=== PATIENT | male | born 1965 | race Caucasian/White ===

== ENCOUNTER → 2017-03-07 | Outpatient (CLI) | payer BC, SELFPAY ==
[2017-03-07 09:42] LABS: ALBUMIN 4.2 GM/DL (3.2-5.2); ALBUMIN/GLOBULIN RATIO 1.35 (1.00-1.93); ALKALINE PHOSPHATASE 60 U/L (45-117); ALT/SGPT 44 U/L (12-78); ANION GAP 7 MEQ/L (8-16); AST/SGOT 26 U/L (15-37); BILIRUBIN,TOTAL 0.6 MG/DL (0.2-1.0); BLOOD UREA NITROGEN 21 MG/DL (7-18); CALCIUM LEVEL 9.1 MG/DL (8.5-10.1); CARBON DIOXIDE LEVEL 29 MEQ/L (21-32); CHLORIDE LEVEL 106 MEQ/L (98-107); CHOLESTEROL LEVEL 145 MG/DL (<200); CREATININE FOR GFR 1.13 MG/DL (0.70-1.30); GLOMERULAR FILTRATION RATE > 60.0 (>56); GLUCOSE, FASTING 125 MG/DL (70-105); POTASSIUM SERUM 4.7 MEQ/L (3.5-5.1); SODIUM LEVEL 142 MEQ/L (136-145); TOTAL PROTEIN 7.3 GM/DL (6.4-8.2); TRIGLYCERIDES LEVEL 65 MG/DL (<150)
== END ==
LOC: M WUC 08:21
PROVIDERS: ATTEND Emergency Medicine
DX: E11.9 Type 2 diabetes mellitus without complications (principal); I10 Essential (primary) hypertension; E78.2 Mixed hyperlipidemia

== ENCOUNTER → 2017-06-25 | Outpatient (CLI) | payer BC ==
[2017-06-25 14:54] LABS: BASO % 0.4 % (0.0-1.0); EOS # 0.2 10^3/uL (0.0-0.50); EOS % 2.5 % (0.0-3.0); IMMATURE GRANULOCYTE % 0.4 % (0-0); LYMPH # 2.6 10^3/uL (1.5-4.5); LYMPH % 37.9 % (24.0-44.0); MEAN CORPUSCULAR HEMOGLOBIN 30.5 pg (27.0-33.0); MEAN CORPUSCULAR HGB CONC 34.1 g/dl (32.0-36.5); MEAN CORPUSCULAR VOLUME 89.5 fl (80.0-96.0); MONO # 0.7 10^3/uL (0.0-0.8); MONO % 9.7 % (0.0-5.0); NEUTROPHILS # 3.3 10^3/uL (1.8-7.7); NEUTROPHILS % 49.1 % (36.0-66.0); PLATELET COUNT, AUTOMATED 250 10^3/uL (150-450); RED CELL DISTRIBUTION WIDTH 11.5 % (11.5-14.5); WHITE BLOOD COUNT 6.8 10^3/uL (4.0-10.0)
[2017-06-25 15:15] LABS: ANION GAP 8 MEQ/L (8-16); BLOOD UREA NITROGEN 17 MG/DL (7-18); CALCIUM LEVEL 8.7 MG/DL (8.5-10.1); CARBON DIOXIDE LEVEL 29 MEQ/L (21-32); CHLORIDE LEVEL 105 MEQ/L (98-107); CREATININE FOR GFR 1.03 MG/DL (0.70-1.30); GLOMERULAR FILTRATION RATE > 60.0 (>56); GLUCOSE, FASTING 115 MG/DL (70-105); POTASSIUM SERUM 4.3 MEQ/L (3.5-5.1); SODIUM LEVEL 142 MEQ/L (136-145)
== END ==
LOC: M WUC 13:16
PROVIDERS: ATTEND Family Medicine
DX: I10 Essential (primary) hypertension (principal)

== ENCOUNTER → 2017-11-08 | Outpatient (CLI) | payer BC ==
[2017-11-08 09:34] LABS: ALBUMIN 4.1 GM/DL (3.2-5.2); ALBUMIN/GLOBULIN RATIO 1.37 (1.00-1.93); ALKALINE PHOSPHATASE 62 U/L (45-117); ALT/SGPT 69 U/L (12-78); ANION GAP 8 MEQ/L (8-16); AST/SGOT 37 U/L (7-37); BILIRUBIN,TOTAL 0.8 MG/DL (0.2-1.0); BLOOD UREA NITROGEN 20 MG/DL (7-18); CALCIUM LEVEL 8.9 MG/DL (8.5-10.1); CARBON DIOXIDE LEVEL 28 MEQ/L (21-32); CHLORIDE LEVEL 102 MEQ/L (98-107); CHOLESTEROL LEVEL 119 MG/DL (<200); CHOLESTEROL RISK RATIO 3.051 (<5); CREATININE FOR GFR 1.18 MG/DL (0.70-1.30); GLOMERULAR FILTRATION RATE > 60.0 (>56); GLUCOSE, FASTING 136 MG/DL (70-100); HDL CHOLESTEROL 39 MG/DL (>40); NON-HDL-C 80 MG/DL; POTASSIUM SERUM 4.3 MEQ/L (3.5-5.1); SODIUM LEVEL 138 MEQ/L (136-145); TOTAL PROTEIN 7.1 GM/DL (6.4-8.2); TRIGLYCERIDES LEVEL 75 MG/DL (<150)
[2017-11-08 10:03] LABS: ESTIMATED AVERAGE GLUCOSE 143 MG/DL (60-110); HEMOGLOBIN A1c 6.6 %
== END ==
LOC: M WUC 08:07
DX: E11.9 Type 2 diabetes mellitus without complications (principal); I10 Essential (primary) hypertension; E78.2 Mixed hyperlipidemia
CPT/HCPCS: 80053

== ENCOUNTER → 2018-05-27 | Outpatient (CLI) | payer BC ==
[2018-05-27 09:39] LABS: ALBUMIN 4.1 GM/DL (3.2-5.2); ALBUMIN/GLOBULIN RATIO 1.46 (1.00-1.93); ALKALINE PHOSPHATASE 67 U/L (45-117); ALT/SGPT 57 U/L (12-78); ANION GAP 7 MEQ/L (8-16); AST/SGOT 28 U/L (7-37); BILIRUBIN,TOTAL 0.7 MG/DL (0.2-1.0); BLOOD UREA NITROGEN 20 MG/DL (7-18); CALCIUM LEVEL 9.5 MG/DL (8.5-10.1); CARBON DIOXIDE LEVEL 29 MEQ/L (21-32); CHLORIDE LEVEL 100 MEQ/L (98-107); CHOLESTEROL LEVEL 135 MG/DL (<200); CHOLESTEROL RISK RATIO 3.292 (<5); CREATININE FOR GFR 1.15 MG/DL (0.70-1.30); GLOMERULAR FILTRATION RATE > 60.0 (>56); GLUCOSE, FASTING 133 MG/DL (70-100); HDL CHOLESTEROL 41 MG/DL (>40); LDL CHOLESTEROL 74 MG/DL (<100); NON-HDL-C 94 MG/DL; POTASSIUM SERUM 4.1 MEQ/L (3.5-5.1); SODIUM LEVEL 136 MEQ/L (136-145); TOTAL PROTEIN 6.9 GM/DL (6.4-8.2); TRIGLYCERIDES LEVEL 98 MG/DL (<150)
[2018-05-27 10:12] LABS: MALB URINE SIEMENS 12.2 MG/L; MAU/CREAT RATIO 5.7 MCG/MG (0.0-30.0)
[2018-05-27 12:18] LABS: ESTIMATED AVERAGE GLUCOSE 154 MG/DL (60-110)
== END ==
LOC: M WUC 08:17
DX: E11.9 Type 2 diabetes mellitus without complications (principal); I10 Essential (primary) hypertension; E78.2 Mixed hyperlipidemia
CPT/HCPCS: 80053

== ENCOUNTER → 2018-11-20 | Outpatient (CLI) | payer BC ==
[2018-11-20 13:03] LABS: BLOOD UREA NITROGEN 22 MG/DL (7-18); CALCIUM LEVEL 9.4 MG/DL (8.5-10.1); CARBON DIOXIDE LEVEL 25 MEQ/L (21-32); CHLORIDE LEVEL 103 MEQ/L (98-107); CREATININE FOR GFR 1.13 MG/DL (0.70-1.30); GLOMERULAR FILTRATION RATE > 60.0 (>56); GLUCOSE, FASTING 148 MG/DL (70-100); POTASSIUM SERUM 4.6 MEQ/L (3.5-5.1); SODIUM LEVEL 139 MEQ/L (136-145)
== END ==
LOC: M WUC 08:29
PROVIDERS: ATTEND Physician Assistant
DX: E11.9 Type 2 diabetes mellitus without complications (principal)

== ENCOUNTER → 2019-05-26 | Outpatient (CLI) | payer BC ==
[2019-05-26 10:49] LABS: HEMOGLOBIN A1c 7.1 %
[2019-05-26 11:03] LABS: ALT/SGPT 71 U/L (12-78); BILIRUBIN,TOTAL 0.9 MG/DL (0.2-1.0); BLOOD UREA NITROGEN 17 MG/DL (7-18); CALCIUM LEVEL 9.6 MG/DL (8.5-10.1); CARBON DIOXIDE LEVEL 31 MEQ/L (21-32); CHLORIDE LEVEL 105 MEQ/L (98-107); CHOLESTEROL LEVEL 141 MG/DL (<200); CREATININE FOR GFR 1.09 MG/DL (0.70-1.30); GLOMERULAR FILTRATION RATE > 60.0 (>56); GLUCOSE, FASTING 141 MG/DL (70-100); HDL CHOLESTEROL 50 MG/DL (>40); LDL CHOLESTEROL 75 MG/DL (<100); NON-HDL-C 91 MG/DL; POTASSIUM SERUM 4.4 MEQ/L (3.5-5.1); SODIUM LEVEL 139 MEQ/L (136-145); TRIGLYCERIDES LEVEL 80 MG/DL (<150)
[2019-05-26 11:21] LABS: MAU/CREAT RATIO 7.6 MCG/MG (0.0-30.0)
== END ==
LOC: M WUC 08:16
PROVIDERS: ATTEND Physician Assistant
DX: E11.9 Type 2 diabetes mellitus without complications (principal); I10 Essential (primary) hypertension; E78.2 Mixed hyperlipidemia

== ENCOUNTER → 2019-11-24 | Outpatient (CLI) | payer BC ==
[2019-11-24 10:47] LABS: HEMOGLOBIN A1c 6.7 %
[2019-11-24 10:48] LABS: ALBUMIN 3.8 GM/DL (3.2-5.2); ALT/SGPT 53 U/L (12-78); BILIRUBIN,TOTAL 0.8 MG/DL (0.2-1.0); BLOOD UREA NITROGEN 21 MG/DL (7-18); CARBON DIOXIDE LEVEL 31 MEQ/L (21-32); CHLORIDE LEVEL 104 MEQ/L (98-107); CHOLESTEROL LEVEL 125 MG/DL (<200); CHOLESTEROL RISK RATIO 2.906 (<5); CREATININE FOR GFR 0.98 MG/DL (0.70-1.30); GLOMERULAR FILTRATION RATE > 60.0 (>56); GLUCOSE, FASTING 123 MG/DL (70-100); HDL CHOLESTEROL 43 MG/DL (>40); LDL CHOLESTEROL 69 MG/DL (<100); NON-HDL-C 82 MG/DL; POTASSIUM SERUM 4.5 MEQ/L (3.5-5.1); SODIUM LEVEL 139 MEQ/L (136-145); TOTAL PROTEIN 6.8 GM/DL (6.4-8.2); TRIGLYCERIDES LEVEL 67 MG/DL (<150)
== END ==
LOC: M WUC 08:12
PROVIDERS: ATTEND Physician Assistant
DX: E11.9 Type 2 diabetes mellitus without complications (principal); E78.2 Mixed hyperlipidemia

== ENCOUNTER → 2020-06-04 | Outpatient (CLI) | payer BC ==
[2020-06-04 15:49] LABS: BASO % 0.5 % (0.0-1.0); EOS # 0.1 10^3/uL (0.0-0.5); EOS % 0.9 % (0.0-3.0); HEMATOCRIT 48.1 % (42.0-52.0); HEMOGLOBIN 15.8 g/dl (13.5-17.5); LYMPH # 2.3 10^3/uL (1.5-5.0); LYMPH % 27.2 % (24.0-44.0); MEAN CORPUSCULAR HEMOGLOBIN 30.2 pg (27.0-33.0); MEAN CORPUSCULAR HGB CONC 32.8 g/dl (32.0-36.5); MEAN CORPUSCULAR VOLUME 91.8 fl (80.0-96.0); MONO % 11.7 % (0.0-5.0); NEUTROPHILS % 59.3 % (36.0-66.0); PLATELET COUNT, AUTOMATED 193 10^3/uL (150-450); RED BLOOD COUNT 5.24 10^6/uL (4.30-6.10); WHITE BLOOD COUNT 8.5 10^3/uL (4.0-10.0)
[2020-06-04 16:10] LABS: HEMOGLOBIN A1c 7.1 %
[2020-06-04 16:50] LABS: ALBUMIN 3.4 GM/DL (3.2-5.2); ALT/SGPT 53 U/L (12-78); BILIRUBIN,TOTAL 0.8 MG/DL (0.2-1.0); BLOOD UREA NITROGEN 16 MG/DL (7-18); CALCIUM LEVEL 9.3 MG/DL (8.5-10.1); CARBON DIOXIDE LEVEL 27 MEQ/L (21-32); CHLORIDE LEVEL 103 MEQ/L (98-107); CHOLESTEROL LEVEL 135 MG/DL (<200); CHOLESTEROL RISK RATIO 2.934 (<5); CREATININE FOR GFR 1.16 MG/DL (0.70-1.30); GLOMERULAR FILTRATION RATE > 60.0 (>56); GLUCOSE, FASTING 142 MG/DL (70-100); HDL CHOLESTEROL 46 MG/DL (>40); LDL CHOLESTEROL 71 MG/DL (<100); NON-HDL-C 89 MG/DL; POTASSIUM SERUM 4.6 MEQ/L (3.5-5.1); SODIUM LEVEL 135 MEQ/L (136-145); TRIGLYCERIDES LEVEL 90 MG/DL (<150)
[2020-06-04 17:15] LABS: MALB URINE SIEMENS 14.2 MG/L; MAU/CREAT RATIO 6.6 MCG/MG (0.0-30.0)
== END ==
LOC: M WUC 11:17
PROVIDERS: ATTEND Family Medicine
DX: E11.9 Type 2 diabetes mellitus without complications (principal)

== ENCOUNTER → 2020-12-08 | Outpatient (CLI) | payer OTHER ==
[2020-12-08 11:13] LABS: HEMOGLOBIN A1c 9.4 %
== END ==
LOC: M WUC 08:14
PROVIDERS: ATTEND Nurse Practitioner Family
DX: E11.9 Type 2 diabetes mellitus without complications (principal)

== ENCOUNTER → 2021-03-31 | Outpatient (REF) | payer OTHER ==
[2021-03-31 17:07] LABS: HEMOGLOBIN A1c 8.1 %
== END ==
LOC: M WUC 16:16
PROVIDERS: ATTEND Nurse Practitioner Family
DX: E11.9 Type 2 diabetes mellitus without complications (principal)

== ENCOUNTER 2021-04-12 07:35 | Observation (INO) | payer OTHER ==
[~2021-04-12] VITALS: Ht 185.4 cm; Wt 115.0 kg
[2021-04-12] VITALS (7 sets, daily range): BP systolic 114–143; BP diastolic 73–94
[2021-04-12] MEDS ORDERED: METF10004 PO (08:00)
[2021-04-12] MEDS ORDERED: ATOR1TAB21 PO (08:00)
[2021-04-12] MEDS ORDERED: TAMS1CAP17 PO (08:00)
[2021-04-12] MEDS ORDERED: LISI20TA35 PO (08:00)
[2021-04-12] MEDS ORDERED: ONDA-83 PO (08:00)
[2021-04-12] MEDS ORDERED: OXYC1TAB23 PO (08:00)
[2021-04-12] MEDS ORDERED: JARD1TAB PO (08:00)
[2021-04-12 08:41] LABS: HEMATOCRIT 44.1 % (42.0-52.0); HEMOGLOBIN 15.3 g/dl (13.5-17.5); MEAN CORPUSCULAR HGB CONC 34.7 g/dl (32.0-36.5); MEAN CORPUSCULAR VOLUME 89.5 fl (80.0-96.0); PLATELET COUNT, AUTOMATED 178 10^3/uL (150-450); RED BLOOD COUNT 4.93 10^6/uL (4.30-6.10); WHITE BLOOD COUNT 9.8 10^3/uL (4.0-10.0)
[2021-04-12] MEDS ORDERED: ONDANSETRON 4MG/2ML VIAL IV ONE (08:45)
[2021-04-12] MEDS ORDERED: MORPHINE 4 MG/ML 1ML VIAL/SYRINGE (J2270) IV ONE (08:45)
[2021-04-12] MEDS ORDERED: NS 1,000 ML IV ONE (08:55)
[2021-04-12 09:03] LABS: CALCIUM LEVEL 8.5 MG/DL (8.5-10.1); CREATININE FOR GFR 1.79 MG/DL (0.70-1.30); GLOMERULAR FILTRATION RATE 41.9 (>56); POTASSIUM SERUM 3.6 MEQ/L (3.5-5.1)
[2021-04-12 09:17] LABS: ALBUMIN 3.5 GM/DL (3.2-5.2); BILIRUBIN,DIRECT 0.5 MG/DL (0.0-0.2); BILIRUBIN,TOTAL 1.3 MG/DL (0.2-1.0); TOTAL PROTEIN 6.6 GM/DL (6.4-8.2)
[2021-04-12] MEDS ORDERED: HOME MED LIST COMPLETE! XX SCH (09:45)
[2021-04-12] MEDS ORDERED: MORPHINE 2 MG/ML 1ML VIAL (J2270) IV PRN (09:50)
[2021-04-12] MEDS: NS 1,000 ML IV SCH ×2 (09:50→11:55)
[2021-04-12] MEDS ORDERED: LIDOCAINE 2% 100MG/5ML SDV (FOR ANES.) As Ordered ONE (15:18)
[2021-04-12] MEDS ORDERED: fentaNYL 100 MCG/2 ML INJECTION (J3010) As Ordered ONE ×2 (15:18→17:24)
[2021-04-12] MEDS ORDERED: propofoL 200 MG/20 ML VIAL As Ordered ONE ×3 (15:18→17:30)
[2021-04-12] MEDS ORDERED: MIDAZOLAM INJ 2MG/2ML VIAL (J2250 PER 1MG) As Ordered ONE (15:18)
[2021-04-12] MEDS ORDERED: CONRAY-60 60% 50ML VIAL (Q9961) As Ordered ONE (15:48)
[2021-04-12] MEDS ORDERED: ceFAZolin 2 GM/D5W 50 ML IV BAG (J0690 PER 500MG) As Ordered ONE (16:35)
[2021-04-12] MEDS ORDERED: ceFAZolin SOD 1 GM in D5W MINI-BAG PLUS 50 ML IV ONE (16:35)
--- NOTE | 2021-04-12 16:37 | SMCUROLCON ---
Urology Consultation General Date of Consultation 04/12/21 Reason For Consultation This patient is seen for Acute Kidney Failure,Kidney Stone. History of Present Illness This is a 56 y/o M w/ a PMH significant for DM2, HL, and kidney stones (passed a stone several years ago), admitted for intractable pain 2/2 an obstructing 5-6mm L UVJ stone. The patient first developed severe L flank pain on Sunday. He went to [facility] and was found to have an the L UVJ stone as well as a 6mm stone in his L kidney. He was sent home w/ pain medication and flomax. He went back to [facility] last night for worsening symptoms. He was sent home after his pain improved w/ the plan for surgery today. He came to [facility] this morning as his pain worsened again. He was admitted at that time for pain control. He still notes moderate L flank pain. He has had n/v, but none at this time. He denies dysuria. Of note, his PCP ordered a scrotal US for him which was supposed to be done today as he noticed an abnormality in his L hemiscrotum a few months ago. He notes that it feels like a bag of worms. He denies any pain. Past Medical History Medical History see HPI Surgical Hstory umbilical hernia repair Medications Current Medications Current Medications Medications (Trade) Dose Ordered Sig/Binu Route PRN Reason Start Time Stop Time Status Last Admin Dose Admin Home Med (Home Med List Complete!) ASDIRECTED XX 04/12/21 09:45 04/12/21 09:43 DC Morphine Sulfate (Morphine Sulfate Inj) 2 mg Q6HP PRN IV MODERATE PAIN (PS 5-7) 04/12/21 09:50 04/12/21 12:30 Sodium Chloride 1,000 ml @ 125 mls/hr Q8H IV 04/12/21 09:50 04/12/21 09:50 Allergies Allergies: Coded Allergies: No Known Allergies (Unverified , 04/12/21) Review of Systems Constitutional: Denies: Fever, Chills, Sweats, Weakness, Malaise ENT: Denies: Head Aches, Sore Throat, Epistaxis Skin: Denies: Rash, Lesions, Breakdown, Nail Changes Pulmonary: Denies: Dyspnea, Cough Cardiovascular: Denies Chest Pain, Denies Palpitations Gastrointestinal: Reports: Nausea, Vomiting, Abdominal Pain Genitourinary: Denies: Dysuria, Frequency, Incontinence, Hematuria Musculoskeletal: Reports: Back Pain (L flank) Psych: Reports: Mood Normal Physical Examination General Exam: Alert, Cooperative, No Acute Distress Chest Exam: Normal air movement Heart Exam: Rate Normal Abdomen Exam: Soft, Mass; No: Tenderness Male Exam catheter in place draining yellow urine; circumcised phallus w/o lesions; b/l descended testicles, both normal in size and negative for masses - nontender; Grade 2 L varicocele Skin Exam: Nl turgor and temperature Neuro Exam: Normal Speech Psych Exam: Mental status NL, Mood NL Vital Signs/I&O Vital Signs Date Time Temp Pulse Resp B/P (MAP) Pulse Ox O2 Delivery O2 Flow Rate FiO2 04/12/21 14:00 99.1 80 16 114/75 (88) 92 Room Air Laboratory Data 24H Labs Laboratory Tests 2 04/12/21 08:31: Nucleated Red Blood Cells % (auto) 0.0, Anion Gap 9, Glomerular Filtration Rate 41.9L, Calcium Level 8.5, Total Bilirubin 1.3H, Direct Bilirubin 0.5H, Aspartate Amino Transf (AST/SGOT) 24, Alanine Aminotransferase (ALT/SGPT) 48, Alkaline Phosphatase 52, Total Protein 6.6, Albumin 3.5, Albumin/Globulin Ratio 1.1, Lipase 78 04/12/21 08:42: Urine Color YELLOW, Urine Appearance CLEAR, Urine pH 5.0, Urine Specific [place] 1.026, Urine Protein NEGATIVE, Urine Glucose (UA) 3+H, Urine Ketones 1+H, Urine Blood 2+H, Urine Nitrite NEGATIVE, Urine Bilirubin NEGATIVE, Urine Urobilinogen 0.2, Urine Leukocyte Esterase NEGATIVE, Urine WBC (Auto) 2, Urine RBC (Auto) 2, Urine Hyaline Casts (Auto) 0, Urine Bacteria (Auto) NEGATIVE, Urine Squamous Epithelial Cells 0, Urine Sperm (Auto) CBC/BMP Laboratory Tests 04/12/21 08:31 Assessment This is a 56 y/o M admitted for intractable pain 2/2 an obstructing 5-6mm L UVJ stone. I recommended that we take him to the OR for cystoscopy, L ureteroscopy w/ laser lithotripsy, and L ureteral stent placement. After a discussion of the risks and benefits of the procedure, informed consent was signed. Regarding the L scrotal abnormality, this feels like a varicocele and no treatment will likely be needed as he is asymptomatic from this. I explained that he should still have the scrotal US done to confirm this finding. Plan - informed consent signed - 2g ancef IV OCOR - NPO - may have regular diet postop - if pain is controlled postop, ok for discharge home - my patient will schedule follow up in a few wks for stent removal JOSE BOGGS MD Apr 12, 2021 16:37
[2021-04-12] MEDS ORDERED: ceFAZolin SOD 2 GM in IV 1 EA IV ONE (16:40)
--- NOTE | 2021-04-12 16:41 | HPEPDOC ---
[facility] Medical History & Physical Date of Admission Apr 12, 2021 Date of Service: Apr 12, 2021 Attending Physician: Lakeisha Hale MD History and Physical CHIEF COMPLAINT: Left flank pain HISTORY OF PRESENT ILLNESS: Patient is a 56-year-old male with past medical history of kidney stones, diabetes mellitus, hyperlipidemia, diverticulitis, hypertension who presented to [facility] emergency room with the chief complaint of increasing left flank pain. This pain was described as severe, 04/17, constant, present since 04/09/2021. He initially presented to [facility] over this past weekend and was diagnosed with kidney stones. It was noted that he had several kidneys, one in the left UVJ. He was discharged home after that initial visit and then later came back to . He was offered to be transferred to [facility] at that time but opted to go home and told to follow-up with Dr. Arreola, urology today. Today at home the pain was so severe he came to the emergency room before his scheduled OR time. On examination the patient had severe left flank pain and tenderness over the left lower back. He denied any urinary symptoms, nausea, vomiting, diarrhea, chills, sweating. Creatinine was noted to have increased to 1.79 from 1.75 on his last set of labs from [facility]. He was given morphine and Zofran in the emergency room with little improvement. Dr. Arreola was contacted and the p atient was admitted under observation status for left kidney stone requiring cystoscopy, ureteroscopy, laser lithotripsy with left stent a possibility. REVIEW OF SYSTEMS: CONSTITUTIONAL: Denies lack of energy, unexplained weight gain or weight loss, loss of appetite, fever EYES: Denies eye drainage, eye pain, visual changes, dry/irritated eye EARS, NOSE, MOUTH, THROAT: Denies difficulty hearing, ringing in ears, mouth sores, loose teeth, sore throat, facial numbness or pain NECK: Denies swollen glands CARDIOVASCULAR: Denies irregular heartbeat, racing heart, chest pains, swelling of feet or legs, pain in legs with walking RESPIRATORY: Denies shortness of breath, night sweats, wheezing, sputum production, oxygen at home, coughing up blood, cough lasting > 1 month GASTROINTESTINAL: Denies abdominal pain, constipation, bloody stool, diarrhea, heartburn, nausea, vomiting GENITOURINARY: Denies painful urination, bloody urine, frequent urination, urgency, leaking urine, impotence MUSCULOSKELETAL: Denies joint pain, leg swelling INTEGUMENTARY: Denies rash, itching, new skin lesion, change in existing skin lesion, hair loss or increase, breast changes. NEUROLOGICAL: Denies headaches, dizziness, difficulty walking, numbness or tingling PSYCHIATRIC: Denies depression, anxiety, recurrent bad thoughts, mood swings, hallucinations PAST MEDICAL HISTORY: Diabetes mellitus History of kidney stones Hyperlipidemia Diverticulitis Hypertension testicular mass? PAST SURGICAL HISTORY: Umbilical hernia repair FAMILY HISTORY: FatherCAD, DM, hypertension, testicular cancer SOCIAL HISTORY: Denies smoking alcohol or illicit drug use. Lives with his significant other. No handicaps. Follows with primary care regularly. ALLERGIES: Please see below. HOME MEDICATIONS: Please see below. PHYSICAL EXAMINATION: VS: see below CONSTITUTIONAL: No acute distress, resting comfortably, AAO x 3 EYES: PERRLA, EOM intact HENT, MOUTH: Normocephalic, atraumatic, moist mucous membranes, NECK: SUPPLE, no JVD, no lymphadenopathy, no carotid bruit CV: Regular rate and rhythm, S1S2 normal, no murmurs/rubs/gallops BACK: Left lower back tenderness on palpation/tapping with radiationto left groin, left groin tenderness on palpation RESPIRATORY: Clear to auscultation bilaterally, no rales/rhonchi/wheezes GI: BS positive in 4 quadrants, soft, nontender, nondistended, no rebound or guarding, no organomegaly : morejon catheter MUSCULOSKELETAL: Normal ROM. No cyanosis, clubbing, swelling, joint deformity, extremity edema INTEGUMENTARY: Intact, no rashes, no lesions, no erythema NEUROLOGIC: Cranial Nerves II-XII are intact, no focal deficits PSYCHIATRIC: Mood and affect are normal LABORATORY DATA: Please see below IMAGING: Imaging in chart ASSESSMENT: 56-year-old male admitted for left ureterolithiasis requiring cystoscopy, ureteroscopy, laser lithotripsy with left stent placement. PLAN: 1. Ureterolithiasis, left -Hx of kidney stones -Imaging from [facility], in chart, reviewed upon admission -Morejon catheter, pain control -Dr. Arreola (urology) consulted and plans cystoscopy, ureteroscopy, laser lithotripsy with left stent placement 2. IMER likely 2/2 to left ureterolithiasis and home medications -Cr 1.7, baseline wnl per patient -Hold all antihypertensives -IVFs, repeat labs in AM, avoid nephrotoxic meds 3. DM -BS 160 -[id number], change to AC/HS and diabetic diet after surgery -Hold home PO meds for now, restart on discharge 4. HLD -Resume statin after surgery 5. HTN -Stable -May incr BP with fluids -Hold home meds for now and monitor 6. DVT px -Due for surgery, holding heparin. Start when ok by urology DISPOSITION: OR today, observation status. Urology consulted and following. Plan is home at discharge Vital Signs Vital Signs Date Time Temp Pulse Resp B/P (MAP) Pulse Ox O2 Delivery O2 Flow Rate FiO2 04/12/21 14:00 99.1 80 16 114/75 (88) 92 Room Air Laboratory Data Labs 24H Laboratory Tests 2 04/12/21 08:31: Nucleated Red Blood Cells % (auto) 0.0, Anion Gap 9, Glomerular Filtration Rate 41.9L, Calcium Level 8.5, Total Bilirubin 1.3H, Direct Bilirubin 0.5H, Aspartate Amino Transf (AST/SGOT) 24, Alanine Aminotransferase (ALT/SGPT) 48, Alkaline Phosphatase 52, Total Protein 6.6, Albumin 3.5, Albumin/Globulin Ratio 1.1, Lipase 78 04/12/21 08:42: Urine Color YELLOW, Urine Appearance CLEAR, Urine pH 5.0, Urine Specific [place] 1.026, Urine Protein NEGATIVE, Urine Glucose (UA) 3+H, Urine Ketones 1+H, Urine Blood 2+H, Urine Nitrite NEGATIVE, Urine Bilirubin NEGATIVE, Urine Urobilinogen 0.2, Urine Leukocyte Esterase NEGATIVE, Urine WBC (Auto) 2, Urine RBC (Auto) 2, Urine Hyaline Casts (Auto) 0, Urine Bacteria (Auto) NEGATIVE, Urine Squamous Epithelial Cells 0, Urine Sperm (Auto) CBC/BMP Laboratory Tests 04/12/21 08:31 Home Medications Scheduled Atorvastatin Calcium (Atorvastatin Calcium) 20 Mg Tablet, 20 MG PO DAILY Empagliflozin (Jardiance) 10 Mg Tablet, 10 MG PO DAILY Lisinopril/Hydrochlorothiazide (Lisinopril-Hctz 20-12.5 mg Tab) 1 Each Tablet, 1 TAB PO DAILY Metformin HCl (Metformin HCl) 1,000 Mg Tablet, 1,000 MG PO DAILY Tamsulosin Hcl (Tamsulosin HCl) 0.4 Mg Capsule, 0.4 MG PO DAILY Scheduled PRN Ondansetron HCl (Ondansetron HCl) 4 Mg Tablet, 8 MG PO TID PRN for NAUSEA Oxycodone HCl/Acetaminophen (Oxycodone-Acetaminophen 5-325) 1 Each Tablet, 1 TAB PO Q6H PRN for PAIN LEVEL 5-10 Allergies Coded Allergies: No Known Allergies (Unverified , 04/12/21) A-FIB/CHADSVASC A-FIB History Current/History of A-Fib/PAF?: No Current PO Anticoag Therapy: No Age/Risk Factor Scoring CHADSVASC: CHADSVASC Response (Comments) Value Age Risk Factor Age < 65 years old 0 Gender Risk Factor Male 0 Hx of CHF No 0 Hx of HTN Yes 1 Hx of Stroke/TIA/or VTE No 0 Hx of Diabetes Yes 1 Hx of Vascular Disease No 0 Total 2 Treatment Treatment ordered: NONE Other anticoagulant ordered: surgery Lakeisha Hale MD Apr 12, 2021 16:41
[2021-04-12] MEDS ORDERED: dexameTHASONE 4 MG/ML 1ML VIAL (J1100 PER 1MG) As Ordered ONE (16:54)
[2021-04-12] MEDS ORDERED: METOCLOPRAMIDE INJ 10MG/2ML VIAL (J2765 PER 1) As Ordered ONE (16:55)
[2021-04-12] MEDS ORDERED: PHENYLephrine 500MCG 5ML (100MCG/ML) SYRINGE As Ordered ONE (17:23)
[2021-04-12] MEDS ORDERED: ePHEDrine SULFATE 25 MG/5 ML(5MG/ML) SYRINGE As Ordered ONE (17:23)
[2021-04-12] MEDS ORDERED: ONDANSETRON 4MG/2ML VIAL As Ordered ONE (17:30)
--- NOTE | 2021-04-12 17:43 | REP ---
INDICATION: LEFT STENT PLACEMENT. COMPARISON: None. TECHNIQUE: Two supine radiographs of the abdomen and pelvis FINDINGS: Findings demonstrate satisfactory left ureteral stent placement. Total fluoroscopic time 13 seconds. IMPRESSION: Left ureteral stent placement. <Electronically signed by Matt Pacheco > 04/12/21 1009
[2021-04-12] MEDS ORDERED: ONDANSETRON 4MG/2ML VIAL IV PRN (17:55)
[2021-04-12] MEDS ORDERED: METOCLOPRAMIDE INJ 10MG/2ML VIAL (J2765 PER 1) IV PRN (17:55)
[2021-04-12] MEDS ORDERED: fentaNYL 100 MCG/2 ML INJECTION (J3010) IV PRN (17:55)
[2021-04-12] MEDS ORDERED: LR 1,000 ML IV SCH (17:55)
[2021-04-12] MEDS ORDERED: oxyCODONE 5MG TAB PO PRN (17:55)
[2021-04-12] MEDS ORDERED: OXYCODONE/APAP 5MG/325MG(BULK FOR ED) 1 TABLET PO PRN (18:50)
[2021-04-12] MEDS ORDERED: NS 1,000 ML IV SCH (18:50)
[2021-04-12] MEDS ORDERED: ACETAMINOPHEN TAB 650MG DOSE (2X325MG) PO PRN (18:55)
[2021-04-13 00:11] VITALS: BP 127/80
[2021-04-13 04:00] VITALS: BP 127/79
--- NOTE | 2021-04-13 07:42 | RO ---
OPERATIVE NOTE DATE OF OPERATION: 04/12/2021 PREOPERATIVE DIAGNOSIS: Left kidney and ureteral stones. POSTOPERATIVE DIAGNOSIS: Left kidney and ureteral stones. PROCEDURE: Cystoscopy, left ureteroscopy with laser lithotripsy and basket extraction of stones, left retrograde pyelogram with intraop interpretation of images, left ureteral stent placement. SURGEON: Jone Arreola MD FIRE PREVENTION OFFICER: None ANESTHESIA: General. OPERATIVE INDICATIONS: This is a 56-year-old male who had intractable pain from a 5 mm left ureterovesical junction stone. He also had 5-6 mm stone inside his left kidney. He was brought to the operating room today for treatment. DESCRIPTION OF PROCEDURE: The patient was brought to the operating room and general anesthesia was induced. Prophylactic antibiotics were infused. He was placed in the dorsal lithotomy position and prepped and draped in usual sterile fashion. A rigid cystoscope was inserted in the urethral meatus and advanced into the bladder. A guidewire was advanced into the left collecting system. I then went up the left collecting system with a short semi-rigid ureteroscope and within the distal ureter the 5 mm stone was seen. The stone was removed using a basket. I then advanced the ureteral access sheath up the left collecting system. I went up the access sheath with a flexible ureteroscope and examined the left kidney thoroughly. Within an upper pole calyx approximately 5-6 mm stone was seen. The stone was fragmented into smaller pieces using 272 micron laser fiber. All the fragments were removed using a basket. I then examined the rest of the kidney and no additional stones were seen. I then shot a retrograde pyelogram and it was notable for mild left hydronephrosis with no extravasation. I then withdrew the ureteroscope along with access sheath and no additional stones were seen inside the ureter. I then utilized the guidewire to advance 6-Dutch x 22-32 cm JJ ureteral stent up the left collecting system. The wire was removed and there were adequate curls of the stent in left renal pelvis and the bladder. The bladder was emptied of all fluids and this marked the conclusion of the procedure. The patient was taken out of the dorsal lithotomy position, awakened from anesthesia and transported to the recovery room in stable condition. ESTIMATED BLOOD LOSS: 5 mL. COMPLICATIONS: None. SPECIMENS: Kidney stone fragments. PLAN: The patient will go back to regular nursing floor and if his pain is controlled he can be discharged home. He will follow up in urology clinic in a few weeks for stent removal. JAY
[2021-04-13 08:14] LABS: HEMOGLOBIN 14.6 g/dl (13.5-17.5); MEAN CORPUSCULAR HEMOGLOBIN 31.3 pg (27.0-33.0); MEAN CORPUSCULAR HGB CONC 34.8 g/dl (32.0-36.5); MEAN CORPUSCULAR VOLUME 89.9 fl (80.0-96.0); PLATELET COUNT, AUTOMATED 215 10^3/uL (150-450); RED BLOOD COUNT 4.67 10^6/uL (4.30-6.10); WHITE BLOOD COUNT 10.6 10^3/uL (4.0-10.0)
[2021-04-13 08:41] LABS: ALBUMIN 3.2 GM/DL (3.2-5.2); ALT/SGPT 45 U/L (12-78); BILIRUBIN,TOTAL 0.9 MG/DL (0.2-1.0); BLOOD UREA NITROGEN 25 MG/DL (7-18); CARBON DIOXIDE LEVEL 26 MEQ/L (21-32); CHLORIDE LEVEL 104 MEQ/L (98-107); CREATININE FOR GFR 1.14 MG/DL (0.70-1.30); GLOMERULAR FILTRATION RATE > 60.0 (>56); GLUCOSE, FASTING 133 MG/DL (70-100); POTASSIUM SERUM 4.2 MEQ/L (3.5-5.1); SODIUM LEVEL 137 MEQ/L (136-145); TOTAL PROTEIN 6.5 GM/DL (6.4-8.2)
--- NOTE | 2021-04-13 20:47 | DS.PDOC ---
Discharge Summary General Date of Admission Apr 12, 2021 at 07:36 Date of Discharge 04/13/21 Attending Physician: Lakeisha Hale MD Discharge Summary HISTORY OF PRESENT ILLNESS: Patient is a 56-year-old male with past medical history of kidney stones, diabetes mellitus, hyperlipidemia, diverticulitis, hypertension who presented to [facility] emergency room with the chief complaint of increasing left flank pain. This pain was described as severe, 04/17, constant, present since 04/09/2021. He initially presented to [facility] over this past weekend and was diagnosed with kidney stones. It was noted that he had several kidneys, one in the left UVJ. He was discharged home after that initial visit and then later came back to . He was offered to be transferred to [facility] at that time but opted to go home and told to follow-up with Dr. Arreola, urology today. Today at home the pain was so severe he came to the emergency room before his scheduled OR time. On examination the patient had severe left flank pain and tenderness over the left lower back. He denied any urinary symptoms, nausea, vomiting, diarrhea, chills, sweating. Creatinine was noted to have increased to 1.79 from 1.75 on his last set of labs from [facility]. He was given morphine and Zofran in the emergency room with little improvement. Dr. Arreola was contacted and the patient was admitted under observation status for left kidney stone requiring removal. HOSPITAL COURSE: On 04/12/2021 the patient underwent cystoscopy, left ureteroscopy, laser lithotripsy and basket extraction of stones, left retrograde pyelogram with intraop interpretation of images, left ureteral stent placement. He tolerated the procedure well. The next morning on 04/13/2021 his labs revealed resolution of his acute kidney injury and the patient's pain had significantly improved. He had hematuria which can be expected after his procedures. H&H was stable. The patient was discharged home with instructions to follow-up with Dr. Arreola as scheduled. If hematuria should worsen he should report this to either his primary care or Dr. Arreola. He denied abdominal pain, groin pain, fevers, chills, nausea, vomiting at discharge. PAST MEDICAL HISTORY: Diabetes mellitus History of kidney stones Hyperlipidemia Diverticulitis Hypertension testicular mass? PAST SURGICAL HISTORY: Umbilical hernia repair FAMILY HISTORY: FatherCAD, DM, hypertension, testicular cancer SOCIAL HISTORY: Denies smoking alcohol or illicit drug use. Lives with his significant other. No handicaps. Follows with primary care regularly. ALLERGIES: Please see below. HOME MEDICATIONS: Please see below. PHYSICAL EXAMINATION: VS: see below CONSTITUTIONAL: No acute distress, resting comfortably, AAO x 3 EYES: PERRLA, EOM intact HENT, MOUTH: Normocephalic, atraumatic, moist mucous membranes, NECK: SUPPLE, no JVD, no lymphadenopathy, no carotid bruit CV: Regular rate and rhythm, S1S2 normal, no murmurs/rubs/gallops RESPIRATORY: Clear to auscultation bilaterally, no rales/rhonchi/wheezes GI: BS positive in 4 quadrants, soft, nontender, nondistended, no rebound or guarding, no organomegaly : deferred MUSCULOSKELETAL: Normal ROM. No cyanosis, clubbing, swelling, joint deformity, extremity edema INTEGUMENTARY: Intact, no rashes, no lesions, no erythema NEUROLOGIC: Cranial Nerves II-XII are intact, no focal deficits PSYCHIATRIC: Mood and affect are normal LABORATORY DATA: Please see below IMAGING: Imaging in chart ASSESSMENT: 56-year-old male admitted for left ureterolithiasis being discharged home today PLAN: 1. Left kidney stone s/p cystoscopy, left ureteroscopy, laser lithotripsy and basket extraction of stones, left retrograde pyelogram with intraop interpretation of images, left ureteral stent placement. -resolved pain, + hematuria -voiding well on his own -Dr. Arreola (urology) to f.u as o/p 2. IMER likely 2/2 to left ureterolithiasis and home medications- resolved -Cr wnl. -resume home meds but encouraged to update PCP to repeat labs in one week 3. DM -stable -C/w home meds 4. HLD -Resume statin 5. HTN -C/w home meds DISPOSITION: D/c home today with fu with Dr. Arreola's office. TIME SPENT ON DISCHARGE: 35 minutes. Vital Signs/I&Os Vital Signs Date Time Temp Pulse Resp B/P (MAP) Pulse Ox O2 Delivery O2 Flow Rate FiO2 04/13/21 04:00 98.5 73 16 127/79 (95) 94 Room Air 04/12/21 19:15 2.0 I&O- Last 24 Hours up to 6 AM 04/13/21 06:00 Intake Total 3980 ml Output Total 3100 ml Balance 880 ml Laboratory Data Labs 24H Laboratory Tests 2 04/13/21 04:28: Bedside Glucose (Misc Panel) 139H 04/13/21 07:55: Nucleated Red Blood Cells % (auto) 0.0, Anion Gap 7L, Glomerular Filtration Rate > 60.0, Calcium Level 9.0, Total Bilirubin 0.9, Aspartate Amino Transf (AST/SGOT) 27, Alanine Aminotransferase (ALT/SGPT) 45, Alkaline Phosphatase 54, Total Protein 6.5, Albumin 3.2, Albumin/Globulin Ratio 1.0 04/13/21 11:25: Bedside Glucose (Misc Panel) 151H CBC/BMP Laboratory Tests 04/13/21 07:55 FSBS Laboratory Tests Test 04/13/21 04:28 04/13/21 11:25 Range/Units Bedside Glucose (Misc Panel) 139 151 70-105 MG/DL Discharge Medications Scheduled Atorvastatin Calcium (Atorvastatin Calcium) 20 Mg Tablet, 20 MG PO DAILY, (Reported) Empagliflozin (Jardiance) 10 Mg Tablet, 10 MG PO DAILY, (Reported) Lisinopril/Hydrochlorothiazide (Lisinopril-Hctz 20-12.5 mg Tab) 1 Each Tablet, 1 TAB PO DAILY, (Reported) Metformin HCl (Metformin HCl) 1,000 Mg Tablet, 1,000 MG PO DAILY, (Reported) Tamsulosin Hcl (Tamsulosin HCl) 0.4 Mg Capsule, 0.4 MG PO DAILY, (Reported) Scheduled PRN Ondansetron HCl (Ondansetron HCl) 4 Mg Tablet, 8 MG PO TID PRN for NAUSEA, (Reported) Oxycodone HCl/Acetaminophen (Oxycodone-Acetaminophen 5-325) 1 Each Tablet, 1 TAB PO Q6H PRN for PAIN LEVEL 5-10, (Reported) Allergies Coded Allergies: No Known Allergies (Unverified , 04/12/21) Lakeisha Hale MD Apr 13, 2021 20:47
== END 2021-04-13 12:07 | disposition home or self-care (01) ==
LOC: M ED 07:35 → M ED INP 07:36 → ENRESERV 10:37 → M MSPAV 11:49
PROVIDERS: ADMIT Internal Medicine; ATTEND Internal Medicine
DX: N20.2 Calculus of kidney with calculus of ureter (principal); N17.9 Acute kidney failure, unspecified; E86.0 Dehydration; E11.9 Type 2 diabetes mellitus without complications; E78.5 Hyperlipidemia, unspecified; I10 Essential (primary) hypertension; N50.9 Disorder of male genital organs, unspecified; Z87.442 Personal history of urinary calculi; Z79.899 Other long term (current) drug therapy; Z79.84 Long term (current) use of oral hypoglycemic drugs
CPT/HCPCS: 36415; 52356; 74420; 80048; 80053; 80076; 81001; 82365; 83690; 85027; 88300; 96361; 96374; 96375; 96376; 99284; C1769; C1894; C2617; J0690; J1100; J2250; J2270; J2370; J2405; J2765; J3010; Q9961

== ENCOUNTER → 2021-04-19 | Outpatient (CLI) | payer OTHER ==
[~2021-04-19] MED LIST: ATOR1TAB21 PO; JARD1TAB PO; LISI20TA35 PO; METF10004 PO; ONDA-83 PO; OXYC1TAB23 PO; TAMS1CAP17 PO
--- NOTE | 2021-04-19 17:49 | REP ---
INDICATION: MASS LT TESTICLE COMPARISON: None. TECHNIQUE: Sanford scale and color Doppler evaluation using linear and curved array transducer with color Doppler evaluation. FINDINGS: The testicles and epididymi are relatively normal in contour, size, echogenicity, vascularity and overall appearance. There is no evidence for intratesticular mass lesion, infectious/inflammatory process, or torsion. Left-sided varicoceles measure up to 4.8 mm diameter on Valsalva. No hydrocele. Right testicle measures 4.2 x 2.3 x 3.0 cm. Left testicle measures 4.4 x 2.1 x 2.9 cm. IMPRESSION: Palpable mass corresponds to left-sided varicoceles measuring up to 4.8 mm on Valsalva. <Electronically signed by Matt Pacheco > 04/19/21 0601
== END ==
LOC: M RAD 16:22
PROVIDERS: ATTEND Nurse Practitioner Family
DX: I86.1 Scrotal varices (principal)

== ENCOUNTER → 2021-05-30 | Outpatient (CLI) | payer OTHER ==
[2021-05-30 17:08] LABS: HEMOGLOBIN A1c 7.4 %
== END ==
LOC: M WUC 11:17
PROVIDERS: ATTEND Nurse Practitioner Family
DX: E11.9 Type 2 diabetes mellitus without complications (principal)

== ENCOUNTER → 2021-12-23 | Outpatient (CLI) | payer OTHER ==
[2021-12-23 10:25] LABS: HEMOGLOBIN A1c 5.8 %
[2021-12-23 10:26] LABS: ALT/SGPT 39 U/L (12-78); BILIRUBIN,TOTAL 0.7 MG/DL (0.2-1.0); BLOOD UREA NITROGEN 23 MG/DL (7-18); CALCIUM LEVEL 9.8 MG/DL (8.5-10.1); CARBON DIOXIDE LEVEL 29 MEQ/L (21-32); CHLORIDE LEVEL 103 MEQ/L (98-107); CHOLESTEROL LEVEL 137 MG/DL (<200); CHOLESTEROL RISK RATIO 3.261 (<5); CREATININE FOR GFR 1.19 MG/DL (0.70-1.30); GLOMERULAR FILTRATION RATE > 60.0 (>56); GLUCOSE, FASTING 116 MG/DL (70-100); HDL CHOLESTEROL 42 MG/DL (>40); LDL CHOLESTEROL 76 MG/DL (<100); NON-HDL-C 95 MG/DL; POTASSIUM SERUM 4.1 MEQ/L (3.5-5.1); SODIUM LEVEL 140 MEQ/L (136-145); TOTAL PROTEIN 7.1 GM/DL (6.4-8.2); TRIGLYCERIDES LEVEL 96 MG/DL (<150)
[2021-12-23 10:31] LABS: MALB URINE SIEMENS 9.7 MG/L; MAU/CREAT RATIO 5.9 MCG/MG (0.0-30.0)
== END ==
LOC: M WUC 08:36
PROVIDERS: ATTEND Nurse Practitioner Family
DX: I10 Essential (primary) hypertension (principal); E78.2 Mixed hyperlipidemia; E11.9 Type 2 diabetes mellitus without complications

== ENCOUNTER → 2022-05-03 | Outpatient (CLI) | payer OTHER ==
[2022-05-03 18:16] LABS: ALBUMIN 4.3 GM/DL (3.2-5.2); BILIRUBIN,DIRECT 0.2 MG/DL (0.0-0.2); BILIRUBIN,TOTAL 0.5 MG/DL (0.2-1.0); TOTAL PROTEIN 7.5 GM/DL (6.4-8.2)
== END ==
LOC: M WUC 10:49
PROVIDERS: ATTEND Podiatrist
DX: Z79.899 Other long term (current) drug therapy (principal)

== ENCOUNTER → 2022-12-28 | Outpatient (CLI) | payer OTHER ==
[2022-12-28 20:14] LABS: HEMOGLOBIN A1c 6.6 % (4.0-6.0)
[2022-12-28 20:28] LABS: ALBUMIN 4.4 G/DL (3.2-5.2); ALKALINE PHOSPHATASE 66 U/L (46-116); ALT/SGPT 66 U/L (7.0-40); AST/SGOT 42 U/L (<34); BILIRUBIN,TOTAL 0.7 MG/DL (0.3-1.2); BLOOD UREA NITROGEN 21 MG/DL (9-23); CALCIUM LEVEL 9.5 MG/DL (8.5-10.1); CARBON DIOXIDE LEVEL 28 MMOL/L (20-31); CHLORIDE LEVEL 101 MMOL/L (98-107); CHOLESTEROL LEVEL 143 MG/DL (<200); CHOLESTEROL RISK RATIO 3.38 (<5); CREATININE, URINE 91.4 MG/DL; GLOMERULAR FILTRATION RATE > 60.0 (>56); GLUCOSE, FASTING 87 MG/DL (60-100); HDL CHOLESTEROL 42.3 MG/DL (>40); LDL CHOLESTEROL 73.3 MG/DL (<100); NON-HDL-C 100.7 MG/DL; POTASSIUM SERUM 3.8 MMOL/L (3.5-5.1); SODIUM LEVEL 138 MMOL/L (136-145); TOTAL PROTEIN 6.9 G/DL (5.7-8.2); TRIGLYCERIDES LEVEL 137 MG/DL (<150)
[2022-12-28 20:29] LABS: MALB URINE SIEMENS < 3.0 MG/L; MAU/CREAT RATIO 3.2 MCG/MG (0.0-30.0)
== END ==
LOC: M WUC 15:05
PROVIDERS: ATTEND Nurse Practitioner Family
DX: I10 Essential (primary) hypertension (principal); E78.2 Mixed hyperlipidemia; E11.9 Type 2 diabetes mellitus without complications

== ENCOUNTER → 2023-01-23 | Outpatient (CLI) | payer OTHER ==
[2023-01-23 12:35] LABS: ALBUMIN 4.2 G/DL (3.2-5.2); ALKALINE PHOSPHATASE 67 U/L (46-116); ALT/SGPT 81 U/L (7.0-40); AST/SGOT 45 U/L (<34); BILIRUBIN,TOTAL 0.5 MG/DL (0.3-1.2); BLOOD UREA NITROGEN 19 MG/DL (9-23); CALCIUM LEVEL 9.8 MG/DL (8.5-10.1); CARBON DIOXIDE LEVEL 28 MMOL/L (20-31); CHLORIDE LEVEL 104 MMOL/L (98-107); CREATININE FOR GFR 1.02 MG/DL (0.70-1.30); GLOMERULAR FILTRATION RATE > 60.0 (>56); GLUCOSE, FASTING 120 MG/DL (60-100); POTASSIUM SERUM 4.3 MMOL/L (3.5-5.1); SODIUM LEVEL 140 MMOL/L (136-145)
== END ==
LOC: M WUC 09:25
PROVIDERS: ATTEND Nurse Practitioner Family
DX: R74.01 Elevation of levels of liver transaminase levels (principal)

== ENCOUNTER → 2023-02-02 | Outpatient (CLI) | payer OTHER | LOC: M RAD 08:33 | PROVIDERS: ATTEND Nurse Practitioner Family | DX: K58.0 Irritable bowel syndrome with diarrhea (principal); R10.11 Right upper quadrant pain ==

== ENCOUNTER → 2023-05-28 | Outpatient (CLI) | payer OTHER ==
[2023-05-28 13:25] LABS: ALBUMIN 4.3 G/DL (3.2-5.2); ALKALINE PHOSPHATASE 67 U/L (46-116); ALT/SGPT 74 U/L (7.0-40); AST/SGOT 38 U/L (<34); BILIRUBIN,TOTAL 0.7 MG/DL (0.3-1.2); BLOOD UREA NITROGEN 21 MG/DL (9-23); CALCIUM LEVEL 9.5 MG/DL (8.5-10.1); CARBON DIOXIDE LEVEL 32 MMOL/L (20-31); CHLORIDE LEVEL 102 MMOL/L (98-107); CREATININE FOR GFR 1.15 MG/DL (0.70-1.30); GLOMERULAR FILTRATION RATE > 60.0 (>56); GLUCOSE, FASTING 145 MG/DL (60-100); SODIUM LEVEL 142 MMOL/L (136-145); TOTAL PROTEIN 7.2 G/DL (5.7-8.2)
== END ==
LOC: M WUC 10:13
PROVIDERS: ATTEND Nurse Practitioner Family
DX: R74.01 Elevation of levels of liver transaminase levels (principal)

== ENCOUNTER → 2023-11-30 | Outpatient (REF) | payer OTHER ==
[2023-11-30 17:30] LABS: CREATININE, URINE 136.4 MG/DL; MAU/CREAT RATIO 2.1 MCG/MG (0.0-30.0)
[2023-11-30 17:33] LABS: ALBUMIN 4.2 G/DL (3.2-5.2); ALKALINE PHOSPHATASE 64 U/L (46-116); ALT/SGPT 73 U/L (7.0-40); AST/SGOT 49 U/L (<34); BILIRUBIN,TOTAL 0.7 MG/DL (0.3-1.2); BLOOD UREA NITROGEN 21 MG/DL (9-23); CARBON DIOXIDE LEVEL 30 MMOL/L (20-31); CHLORIDE LEVEL 102 MMOL/L (98-107); CHOLESTEROL LEVEL 138 MG/DL (<200); CHOLESTEROL RISK RATIO 3.42 (<5); GLOMERULAR FILTRATION RATE > 60.0 (>56); GLUCOSE, FASTING 107 MG/DL (60-100); HDL CHOLESTEROL 40.3 MG/DL (>40); LDL CHOLESTEROL 75.7 MG/DL (<100); NON-HDL-C 97.7 MG/DL; POTASSIUM SERUM 4.5 MMOL/L (3.5-5.1); SODIUM LEVEL 137 MMOL/L (136-145); TRIGLYCERIDES LEVEL 110 MG/DL (<150)
== END ==
LOC: M LABWUC 16:19
PROVIDERS: ATTEND Nurse Practitioner Family
DX: I10 Essential (primary) hypertension (principal); E78.2 Mixed hyperlipidemia; E11.9 Type 2 diabetes mellitus without complications

== ENCOUNTER → 2025-02-16 | Outpatient (CLI) | payer OTHER ==
[2025-02-16 13:26] LABS: CREATININE FOR GFR 1.07 MG/DL (0.70-1.30); GLOMERULAR FILTRATION RATE 79.0 (>49)
== END ==
LOC: M WUC 08:33
PROVIDERS: ATTEND Nurse Practitioner Family
DX: Z01.812 Encounter for preprocedural laboratory examination (principal)

== ENCOUNTER → 2025-02-20 | Outpatient (CLI) | payer OTHER ==
[~2025-02-20] MED LIST changes: +ISOVUE-370 76% 100 ML VIAL As Ordered ONE
== END ==
LOC: M RAD 07:18
PROVIDERS: ATTEND Nurse Practitioner Family
DX: Z13.6 Encounter for screening for cardiovascular disorders (principal); Z82.49 Family history of ischemic heart disease and other diseases of the circulatory system; Z82.3 Family history of stroke; I77.811 Abdominal aortic ectasia
CPT/HCPCS: 70496; 76775; Q9967